=== PATIENT | female | born 1995 | race Caucasian/White ===

== ENCOUNTER → 2018-11-03 | Emergency (ER) | payer OTHER ==
[~2018-11-03] VITALS: Ht 154.9 cm; Wt 65.8 kg
[2018-11-03 14:49] VITALS: BP_SYST 128
== END | disposition still patient (30) ==
LOC: SED 14:33
DX: M79.675 Pain in left toe(s) (principal); Z53.21 Procedure and treatment not carried out due to patient leaving prior to being seen by health care provider